=== PATIENT | female | born 1960 | race Caucasian/White ===

== ENCOUNTER 2022-01-04 01:54 | Emergency (ER) | payer BC ==
[~2022-01-04] VITALS: Ht 167.6 cm; Wt 94.9 kg
[~2022-01-04 01:54] MED LIST: ACET300T4; ARIP5TAB15 PO; CARI350T22 PO; ESCI-34 PO; ESCI5TAB; LEVO75TA6 PO; LISI-716 PO; LISI2.5T47; NOR7.5T PO; ROSU40TA PO; ROSU5TAB5; TEMA15CA PO; TOPI50TA53 PO; [UNRECOGNIZED DRUG - OTHER]
[2022-01-04 02:20] VITALS: BP 161/64
[2022-01-04 03:26] LABS: Urine Bacteria MANY /hpf (None Seen); Urine Blood TRACE /uL (Negative); Urine Hyaline Cast FEW /lpf (0 - 2); Urine Specific Gravity 1.018 (1.001-1.035); Urine WBC 60 /hpf (0 - 5)
== END 2022-01-04 07:50 | disposition left against medical advice (07) ==
LOC: ER 01:54
DX: R10.31 Right lower quadrant pain (principal); R39.15 Urgency of urination; Z53.21 Procedure and treatment not carried out due to patient leaving prior to being seen by health care provider
CPT/HCPCS: 81001

== ENCOUNTER 2025-01-02 17:53 | Emergency (ER) | payer BC ==
[~2025-01-02] VITALS: Ht 167.6 cm; Wt 91.8 kg
[~2025-01-02 17:53] MED LIST changes: -ACET300T4; +ACET300T58; +ARIP5TAB11 PO; -ARIP5TAB15 PO; +CARI-578 PO; -CARI350T22 PO; -ESCI-34 PO; +ESCI1TAB37 PO; -LISI-716 PO; +LISI10TA34 PO; -ROSU40TA PO; +ROSU40TA81 PO
--- NOTE | 2025-01-02 18:19 | ED.PDOC ---
History of Present Illness HPI Comments 64 y/o F presents with c/c of nonradiating, LLQ abdominal pain and constipation. Patient endorses on not having a bowel movement for several days and developing abdominal pain, today. Used [id number] laxative medications to no relief of symptoms. Denial of any nausea, vomiting, diarrhea, or further associated symptoms. Chief Complaint: Abdominal Pain Time Seen by MD: 18:10 Primary Care Provider: HILARIA Reviewed Notes: Nurses Notes, Medications, Allergies Allergies: Coded Allergies: NO KNOWN ALLERGIES (Unverified , 03/07/10) Home Meds Active Scripts Sodium Phosphates (FLEET ENEMA SIX PACK) Enema Paty, 1 UNIT RE Q6HP PRN, #6 EA Prov:JETHRO BECK MD 01/02/25 Glycerin (Glycerin Adult) 2 Gm Sup, 2 GM RE Q4HP PRN, #30 SUPP Prov:JETHRO BECK MD 01/02/25 Polyethylene Glycol 3350 (Miralax) 17 Gm Pow, 17 GM PO BID for 90 Days, #120 POW Prov:JETHRO BECK MD 01/02/25 Reported Medications Aripiprazole (Abilify) 5 Mg Tab, 5 MG PO HS, TAB 03/11/13 Temazepam (Temazepam) 15 Mg Cap, 15 MG PO HS, CAP 03/11/13 Levothyroxine Sodium (Levothyroxine Sodium) 75 Mcg Tab, 75 MCG PO DAILY, TAB 03/11/13 Topiramate (Topiramate) 50 Mg Tab, 50 MG PO BID, TAB 03/11/13 Rosuvastatin Calcium (Crestor) 40 Mg Tab, 40 MG PO DAILY, TAB 03/11/13 Hydrocodone-Acetaminophen ([place] 7.5/325MG) 1 Tab Tb, 1 TAB PO TIDP PRN 03/11/13 Lisinopril (Lisinopril) 10 Mg Tab, 10 MG PO DAILY, TAB 03/11/13 Escitalopram Oxalate (ESCITALOPRAM OXALATE) 20 Mg Tab, 20 MG PO QAM, TAB 03/11/13 Carisoprodol (Carisoprodol) 350 Mg Tab, 350 MG PO TID, TAB 03/11/13 Acetaminophen W/ Codeine (Tylenol #4 W/Codeine) 1 Tab Tb 03/07/10 Escitalopram Oxalate (Lexapro) 5 Mg Tab 03/07/10 Lisinopril (Lisinopril) 2.5 Mg Tab 03/07/10 [Actenol] No Conflict Check 03/07/10 Rosuvastatin Calcium (Crestor) 5 Mg Tab 03/07/10 Information Source: Patient Mode of Arrival: Ambulatory Severity: Moderate Timing: Days Duration: Since onset Prehospital treatment: None Past Medical History PAST MEDICAL HISTORY: High Lipids, HTN Surgical History: Hysterectomy Family History Family History: No family hx of Cancer, No family hx of Heart star Social History Smoker: Non-Smoker Alcohol: Denies ETOH Use Drugs: Denies Drug Use Lives In: Home All Other Systems: Reviewed and Negative (Comprehensive review of systems are negative unless stated in HPI) Physical Exam General Appearance: Mild Distress, Obese HEENT: Normal ENT Inspection, Pharynx Normal, TMs Normal Neck: Full Range of Motion, Non-Tender, Normal, Normal Inspection Respiratory: Chest Non-Tender, Lungs Clear, No Accessory Muscle Use, No Respiratory Distress, Normal Breath Sounds Cardiovascular: No Edema, No JVD, No Murmur, No Gallop, Normal Peripheral Pulses, Regular Rate/Rhythm Breast Exam: Deferred Gastrointestinal: No Organomegaly, Non Tender, No Pulsatile Mass, Normal Bowel Sounds, Soft Genitalia: Deferred Pelvic: Deferred Rectal: Deferred Extremities: No calf tenderness, Normal capillary refill, Normal inspection, Normal range of motion, Non-tender, No pedal edema Musculoskeletal : Apperance: Normal Neurologic: Alert, sound printer II-XII nml as Tested, No Motor Deficits, Normal Affect, Normal Mood, No Sensory Deficits Cerebellar Function: Normal Reflexes: Normal Skin: Dry, Normal Color, Warm Lymphatic: No Adenopathy Was a procedure done? Was a procedure done?: No Differential Dx Considerations may include: constipation, bowel obstruction, diverticulitis, musculoskeletal pain, ovarian cysts/torsion, cystitis, pyelonephritis, nephrolithiasis, among others X-Ray, Labs, Meds, VS Vital Signs Date Time Temp Pulse Resp B/P (MAP) Pulse Ox O2 Delivery O2 Flow Rate FiO2 01/02/25 21:42 98.2 84 18 179/95 (123) 97 98.2 01/02/25 17:58 97.4 91 17 135/88 95 97.4 Lab Test 01/02/25 18:25 01/02/25 18:16 Range/Units Urine Color Light-yellow Yellow Urine Clarity Clear Clear Urine pH 6.0 5.0-9.0 Urine Specific [place] 1.009 1.001-1.035 Urine Protein Negative Negative Urine Ketones Negative Negative Urine Blood Negative Negative /uL Urine Nitrite Negative Negative Urine Bilirubin Negative Negative Urine Urobilinogen Normal Negative mg/dL Urine Leukocyte Esterase Trace Negative /uL Urine RBC 1 0 - 4 /hpf Urine Microscopic WBC 3 0-5 /HPF Urine Squamous Epithelial Cells Few <5 /hpf Urine Bacteria Few H None Seen /hpf Urine Glucose Normal Normal mg/dL White Blood Count 10.7 4.4-10.8 10^3/uL Red Blood Count 5.06 4.0-5.20 10^6/uL Hemoglobin 15.8 12.2-16.2 g/dL Hematocrit 44.5 36.0-46.0 % Mean Corpuscular Volume 88.0 80.0-100.0 fL Mean Corpuscular Hemoglobin 31.3 28.0-32.0 pg Mean Corpuscular Hemoglobin Concent 35.5 32.0-36.0 g/dL Red Cell Distribution Width 13.5 11.8-14.3 % Platelet Count 575 H 140-450 10^3/uL Mean Platelet Volume 7.2 6.9-10.8 fL Neutrophils (%) (Auto) 75.1 37.0-80.0 % Lymphocytes (%) (Auto) 14.6 10.0-50.0 % Monocytes (%) (Auto) 8.7 0.0-12.0 % Eosinophils (%) (Auto) 0.9 0.0-7.0 % Basophils (%) (Auto) 0.7 0.0-2.0 % Neutrophils # (Auto) 8.1 1.6-8.6 10 ^3/uL Lymphocytes # (Auto) 1.6 0.4-5.4 10 ^3/uL Monocytes # (Auto) 0.9 0-1.3 10 ^3/uL Eosinophils # (Auto) 0.1 0-0.8 10 ^3/uL Basophils # (Auto) 0.1 0-0.2 10 ^3/uL Nucleated Red Blood Cells 0.1 % Sodium Level 139 136-145 mmol/L Potassium Level 3.6 3.5-5.1 mmol/L Chloride Level 99 98-107 mmol/L Carbon Dioxide Level 30 20-31 mmol/L Anion Gap 10 5-15 Blood Urea Nitrogen 10 9-23 mg/dL Creatinine 0.96 0.550-1.02 mg/dL Glomerular Filtration Rate Calc 65 >90 mL/min BUN/Creatinine Ratio 10.4 10.0-20.0 Serum Glucose 117 H 74-106 mg/dL Calcium Level 10.2 8.7-10.4 mg/dL Total Bilirubin 0.3 0.2-1.0 mg/dL Aspartate Amino Transferase (AST) 17 13-40 U/L Alanine Aminotransferase (ALT) 19 7-40 U/L Alkaline Phosphatase 107 46-116 U/L Total Protein 8.3 H 5.7-8.2 g/dL Albumin 5.0 H 3.2-4.8 g/dL Lipase 51 12-53 U/L Current Medications Medications (Trade) Dose Ordered Sig/Carroll Route Start Time Stop Time Status Last Admin Polyethylene Glycol/ Electrolytes (Golytely) 1 kit ONCE ONCE PO 01/02/25 18:30 01/02/25 18:31 DC 01/02/25 21:55 Time of 1ST Reevaluation: 18:40 Reevaluation 1ST: Unchanged Patient Education/Counseling: Diagnosis, Treatment, Need For Follow Up Family Education/Counseling: No Family Present SEPSIS Sepsis Screen Date sepsis recognized/suspect: Jan 02, 2025 Time Sepsis recognized/suspect: 1757 Recent Procedure: No On Antibiotic Therapy: No Respiratory Rate >20: No Heart Rate >90: No Temp<36 C (96.8 F) or >38.3 C: No SBP <90 or MAP <65 mmHG: No New Acute Mental Status Change: No Is the patient on CPAP, BIPAP,: No Physician Orders Ct Ab Pel Wo Con-No Oral Or Iv (01/02/25 18:15) Vital Signs Date Time Temp Pulse Resp B/P (MAP) Pulse Ox O2 Delivery O2 Flow Rate FiO2 01/02/25 21:42 98.2 84 18 179/95 (123) 97 98.2 01/02/25 17:58 97.4 91 17 135/88 95 97.4 Laboratory Tests Test 01/02/25 18:16 White Blood Count 10.7 10^3/uL (4.4-10.8) Medications Medications Dose Ordered Sig/Carroll Route Start Time Stop Time Status Last Admin Dose Admin Polyethylene Glycol/ Electrolytes 1 kit ONCE ONCE PO 01/02/25 18:30 01/02/25 18:31 DC 01/02/25 21:55 Departure 1 Departure Time of Disposition: 20:30 Impression: Primary Impression: Constipation Additional Impression: Hiatal hernia Disposition: HOME / SELF CARE / HOMELESS Condition: Stable e-Prescriptions Sodium Phosphates (FLEET ENEMA SIX PACK) Enema Paty 1 UNIT RE Q6HP PRN, #6 EA Prov: JETHRO BECK MD 01/02/25 Glycerin (Glycerin Adult) 2 Gm Sup 2 GM RE Q4HP PRN, #30 SUPP Prov: JETHRO BECK MD 01/02/25 Polyethylene Glycol 3350 (Miralax) 17 Gm Pow 17 GM PO BID for 90 Days, #120 POW Prov: JETHRO BECK MD 01/02/25 Discharged With: Self Critical Care Note Critical Care Time?: No Stability Stability form required: No Heart Score Heart Score: Heart Score Response (Comments) Value History N/A 0 EKG N/A 0 Age N/A 0 Risk Factors N/A 0 Troponin N/A 0 Total 0 I personally scribed for JETHOR BECK MD ([email or web address]) on 01/02/25 at 18:19. E lectronically submitted by Sean Cobb [email or web address]). JETHRO BECK MD Jan 02, 2025 18:19
[2025-01-02 18:36] LABS: Nucleated Red Blood Cells % 0.1 %
[2025-01-02 18:38] LABS: Hematocrit 44.5 % (36.0-46.0); Hemoglobin 15.8 g/dL (12.2-16.2); Mean Corpuscular Hemoglobin 31.3 pg (28.0-32.0); Mean Corpuscular Volume 88.0 fL (80.0-100.0)
[2025-01-02 18:41] LABS: Urine Protein, UAD Negative (Negative)
[2025-01-02 18:53] LABS: Alanine Aminotransferase 19 U/L (7-40); Alkaline Phosphatase 107 U/L (46-116); Anion Gap 10 (5-15); BUN/Creatinine Ratio 10.4 (10.0-20.0); Blood Urea Nitrogen 10 mg/dL (9-23); Calcium 10.2 mg/dL (8.7-10.4); Carbon Dioxide 30 mmol/L (20-31); Chloride 99 mmol/L (98-107); Lipase 51 U/L (12-53); Potassium 3.6 mmol/L (3.5-5.1); Sodium 139 mmol/L (136-145)
[2025-01-02 18:56] LABS: Albumin 5.0 g/dL (3.2-4.8); Bilirubin, Total 0.3 mg/dL (0.2-1.0); Glucose 117 mg/dL (74-106); Total Protein 8.3 g/dL (5.7-8.2)
--- NOTE | 2025-01-02 19:05 | DVH ---
EXAM: CT CT AB PEL WO CON-NO ORAL OR IV INDICATION: abd pain TECHNIQUE: Volumetric multidetector CT images of the abdomen and pelvis were obtained without contras t. All CT scans at this facility use dose modulation, iterative reconstruction, and/or weight based d osing when appropriate to reduce radiation dose to as low as reasonably achievable. COMPARISON: None FINDINGS: [LOWER CHEST]: The partially visualized lung bases are clear without a pleural effusion. The cardiac size is normal without pericardial effusion. [LIVER]: Small focal, well circumscribed hepatic hypodensities, which are nonspecific but statistical ly most likely represent small hepatic cysts. Question hepatic steatosis. [GALLBLADDER AND BILIARY TREE]: No cholelithiasis. [SPLEEN]: Splenosis [PANCREAS]: Unremarkable. [ADRENAL GLANDS]: Unremarkable [KIDNEYS]: No hydronephrosis. No nephroureterolithiasis. No suspicious focal lesion. [BLADDER]: Unremarkable for the degree distention. [REPRODUCTIVE ORGANS]: Hysterectomy [BOWEL/MESENTERY]: Trace sliding hiatal hernia. No CT evidence of bowel obstruction. [id number] stool burden. Stranding of the small bowel mesenteric root. Finding may be secondary to prior inflam mation /enteritis versus sclerosing mesenteritis among other etiologies [ASCITES]: Absent [LYMPHADENOPATHY]: No pathologically enlarged lymph nodes by CT size criteria [VASCULATURE]: No aneurysmal dilatation. [ABDOMINAL WALL]: Small fat containing bilateral inguinal hernias [MUSCULOSKELETAL]: No acute fracture or aggressive focal osseous lesion. Multifocal degenerative powell ge of the visualized spine. Suspected prior hardware removal of the right proximal femur. IMPRESSION: 1. Trace sliding hiatal hernia. 2. Hepatic steatosis. 3. Mild stool burden. Correlate for constipation 4. Stranding of the small bowel mesenteric root. Finding may be secondary to prior inflammation /ente ritis versus sclerosing mesenteritis among other etiologies
[2025-01-02] MEDS ORDERED: GLYC2SUP16 RE (19:54)
[2025-01-02] MEDS ORDERED: SODIENE35 RE (19:54)
[2025-01-02] MEDS ORDERED: POLY335015 PO (19:54)
[2025-01-02 21:42] VITALS: BP 179/95; PULSE 84; RESP 18; TEMP 98.2; O2SAT 97
[2025-01-02] MEDS: GLYCERIN ADULT RECTAL SUPP PR ONE (21:55)
[2025-01-02] MEDS: GOLYTELY 4L KIT PO ONE (21:55)
== END 2025-01-02 19:55 | disposition home or self-care (01) ==
LOC: ER 17:53
DX: K59.00 Constipation, unspecified (principal); K44.9 Diaphragmatic hernia without obstruction or gangrene; I10 Essential (primary) hypertension; Z79.899 Other long term (current) drug therapy; Z90.710 Acquired absence of both cervix and uterus
CPT/HCPCS: 36415; 74176; 80053; 81001; 83690; 85025